=== PATIENT | female | born 1970 | race Caucasian/White ===

== ENCOUNTER 2021-12-16 15:53 | Emergency (ER) | payer BC, MEDICAID ==
[~2021-12-16] VITALS: Ht 152.4 cm; Wt 68.0 kg
[2021-12-16] MEDS ORDERED: CARB15DR63 EACH EAR (18:21)
[2021-12-16 18:28] VITALS: BP 151/71
== END 2021-12-16 18:29 | disposition home or self-care (01) ==
LOC: ER 15:53
DX: H61.21 Impacted cerumen, right ear (principal); I10 Essential (primary) hypertension; Z98.890 Other specified postprocedural states
CPT/HCPCS: 99282